=== PATIENT | male | born 1945 | race Caucasian/White ===

== ENCOUNTER → 2023-07-13 09:11 | Outpatient (CLI) | payer MEDICARE, BC, SELFPAY | PROVIDERS: PCP Family Medicine Sports Medicine; Referring Provider Specialist; Visit Provider Specialist | DX: N40.1 Benign prostatic hyperplasia with lower urinary tract symptoms (principal); N13.8 Other obstructive and reflux uropathy; R39.9 Unspecified symptoms and signs involving the genitourinary system | CPT/HCPCS: 36415; 51798; 81002; 84153; 99214 ==

== ENCOUNTER → 2024-06-05 09:14 | Outpatient (CLI) | payer MEDICARE, OTHER, SELFPAY | PROVIDERS: PCP Family Medicine Sports Medicine; Visit Provider Urology | DX: R39.9 Unspecified symptoms and signs involving the genitourinary system (principal) | CPT/HCPCS: 87086 ==

== ENCOUNTER → 2024-09-06 12:59 | Outpatient (CLI) | payer MEDICARE, OTHER, SELFPAY | PROVIDERS: PCP Family Medicine Sports Medicine; Visit Provider Urology | DX: R39.9 Unspecified symptoms and signs involving the genitourinary system (principal) | CPT/HCPCS: 87086 ==

== ENCOUNTER 2024-09-16 08:06 | Day surgery (SDC) | payer MEDICARE, OTHER, SELFPAY ==
[2024-09-09 13:14] VITALS: BMI 40.5
[2024-09-16] VITALS (10 sets, daily range): BP systolic 135–158; BP diastolic 67–82; PULSE 58–79; RESP 14–20; TEMP 36.2–37; O2SAT 94–99; BMI 40.6
--- NOTE | 2024-09-16 | PATH_ITS ---
[facility] Accession Number: [id number] No. of containers..01 Tissue . 01 Material submitted: . prostate - PROSTATE CHIPS . 01 Diagnosis: PROSTATE CHIPS, TRANSURETHRAL PROSTATIC TISSUE RESECTION: Invasive prostatic adenocarcinoma, conventional/acinar type, total Jasmin score 6 (primary pattern 3, secondary pattern 3), involving 3 out of 72 tissue fragments examined (approximately 5% extent of involvement). Negative for perineural invasion. Grade group: 1 (3+3). Please see microscopic description. Background nodular stromal and glandular hypertrophy. Benign urothelial mucosa also present. V 09/20/2024 1443 Local . 01 Comment: Results were called to ALICIA Al, on 09/20/2024, at 11:45 a.m. . 01 Electronically signed: . Alysa Russell MD, Pathologist NPI- [id number] . 01 Gross description: . Received in formalin with two patient identifiers and prostate chips, and consists of a 4.5 x 3.2 x 1.8 cm (9 gram) aggregate of staton-brown focally cauterized rubbery morcellated tissue admixed with clotted blood. The staton-brown tissue is entirely submitted in cassettes A1-A5. ([id number]) /V 09/18/2024 1441 Local . 01 Microscopic: . Microscopic examination of the entirely submitted prostatic tissue reveals rare foci of invasive, well-differentiated, prostatic adenocarcinoma, grade group 1, involving only 3 fragments out of 72 fragments, 5% of the tissue examined. . Immunostains are performed to support the morphologic impression of carcinoma (especially in areas where cautery artifact limits morphologic evaluation), with the following results: p63/high molecular weight cytokeratin confirms the absence of basal/myoepithelial cell layer on the invasive glands, and the immunostain AMACR appears overexpressed on the areas of interest. . These immunohistochemical results along with the morphology support the diagnosis. . Technical note: * This test was developed and the performance characteristics were validated by [employer]. It has not been cleared or approved by the [place]. Food and Drug Administration. . 01 Pathologist provided ICD-10: N40.1, C61 . 01 CPT . 254563, C69441, [id number] Performed at: [address] [address], [place], [place] [id number] MD Miguel Greenberg MD Phone: [phone]
[2024-09-16] MEDS: LACTATED RINGERS 1,000 ML 42 ML IV ×2 (09:45→13:18)
[2024-09-16] MEDS: ACETAMINOPHEN 325 MG TABLET 975 MG PO (09:47)
[2024-09-16 10:55] LABS: Hematocrit 40.5 % (41-53); Mean Corpuscular HGB Conc 34.4 % (30-36); Mean Corpuscular Hemoglobin 31.1 PG (26-34); Mean Corpuscular Volume 90.4 fL (80-100); Platelet Count 196 X10^3/uL (150-400); Red Blood Cell Count 4.49 X10^6/uL (4.5-5.9); Red Cell Distribution Width 14.5 % (11.6-14.8); White Blood Cell Count 7.2 X10^3/uL (4.5-11.0)
[2024-09-16 11:01] LABS: Alanine Aminotransferase 38 IU/L (<50); Albumin 4.2 g/dL (3.5-5.0); Albumin Globulin Ratio 1.4 (1.0-2.8); Alkaline Phosphatase 85 U/L (38-126); Aspartate Aminotransferase 44 IU/L (17-59); BUN Creatinine Ratio 27.9 (6-22); Bilirubin Total 1.2 mg/dL (0.2-1.3); Blood Urea Nitrogen 48 mg/dL (9-20); Calcium 8.3 mg/dL (8.4-10.2); Carbon Dioxide 26 mmol/L (22-32); Chloride 106 mmol/L (98-107); Estimated Glomerular Filt Rate 40 mL/min (>60); Globulin 3.1 g/dL (1.7-4.1); Glucose 100 mg/dL (80-110); HEMOLYSIS < 15 (0-50); Sodium 139 mmol/L (137-145); Total Protein 7.3 g/dL (6.3-8.2)
--- NOTE | 2024-09-16 11:39 | PM.PREOP ---
Pre-operative Note COVID-19 COVID-19 status: Not tested Interval Note History & Physical reviewed/Exam performed by Physician: Yes Changes to H&P: No
[2024-09-16] MEDS: CEFAZOLIN VIAL 3 GM in SODIUM CHLORIDE 0.9% 100 ML IV (12:29)
--- NOTE | 2024-09-16 12:42 | SUR.OPER ---
Lithotomy on padded OR bed, head on pillow, arms secured on padded arm boards at <90 degrees abduction. Legs secured in padded yellow fins stirrups.
[2024-09-16] MEDS: LIDOCAINE 2% (GLYDO) 6 ML GEL TOP (13:04)
--- NOTE | 2024-09-16 13:37 | P.OP_ITS ---
Procedure & Clinicians Procedure: Cystoscopy Aquablation Same procedure as scheduled: Yes Indications: 79 y/o M w/ BPH and bothersome LUTS who was unresponsive to medical therapy and strongly desires management via an Aquablation procedure. Surgeon: Bennie Thomson Anesthesia Type: General Operative Notes Findings: Coaptating lateral prostatic lobes, no intravesical median lobe, small prostate Closure Type: not applicable Specimen(s): other (prostate chips) Applied: catheter Estimated Blood Loss (mL): 20 Blood products transfused: none Procedure in detail: After informed consent was obtained, the patient was identified brought to the operating room where he was placed in his supine position on the table.? Once there anesthesia was induced and maintained.? Ensuring an adequate level of anesthesia the patient was transitioned to the lithotomy position where after time-out he was prepped.? After prepping, ensuring an adequate level of anesthesia, administration IV antibiotics and time-out 60 cc of ultrasound gel was instilled within the rectum and the ultrasound probe which had been attached to the TRUS stepper which was attached to the TRUS stepper articulating arm which was secured to the bed was advanced into the rectum under direct vision via the ultrasound.? The ultrasound probe was then aligned and confirmation made that the prostate was centered and aligned in both the sagittal and transverse views.? The bladder neck, verumontanum, central and transitional zones were identified.? With the ultrasound in place and adjusted the patient was then draped in a sterile fashion. With the patient draped the 24 Occitan aqua beam handpiece was then inserted through the urethra and advanced into the bladder.? Cystoscopy was then performed and no concerning bladder mass or lesions were noted.? Bilateral ureteral orifices were noted to be orthotopic in nature.? As the cystoscope was advanced the level of the sphincter, verumontanum, bladder neck were all identified via ultrasound and under direct vision.? The aqua beam hand place was then secured to the handpiece articulating arm which had been secured to the bed.? The Aquablation handpiece and TRUS probe were confirmed to be parallel and colinear.? Confirmation was then made that the aqua beam handpiece and nozzle was centered and anterior to the bladder neck.? The cystoscope was then retracted under direct vision in the sphincter and verumontanum were identified.? The tip of the cystoscope was then placed proximal to the external sphincter.? Compression was applied with the TRUS probe to the prostate.? The alignment of the TRUS probe and aqua beam handpiece was once again confirmed.? Horizontal alignment of the handpiece water jet was then performed.? With these adjustments made, the treatment zones were then planned using real-time ultrasound.? In the largest transverse view of the prostate the depth and radial angles were determined and set again in the transverse view of the prostate.? In the longitudinal and sagittal view the Aquablation nozzle was identified and its position registered with the software and robot.? The treatment contours were then determined and adjusted to reflect the intended margins of resection.? Following our plan confirmation, the Aquablation resection treatment was started.? A 2nd pass was then completed in similar fashion after the 1st pass had been completed.? At this point, the Aqua hand piece was removed from the urethra. The 26Fr resectoscope was then inserted into the urethra and cystoscopy was repeated.? The [employer] batch plant supervisor was utilized to evacuate the blood clots from the bladder.? The bladder neck was then resected using the bipolar Gyrus loop.? Bilateral ureteral orifices were again identified and noted to be intact at case end.? Hemostasis was obtained and noted to be excellent at case end.? The resectoscope was then removed and a 22Fr Bernardo 3-way hematuria catheter was inserted through the urethra and into the bladder.? 45cc of sterile water was utilized for balloon insufflation.? Efflux was noted to be clear at case end.? Anesthesia was reversed, he was extubated in the OR and transferred to the PACU in stable condition for recovery. Complications: none Post-operative Condition: stable Disposition: PACU Plan for aftercare: Will continue to run CBI for a few hours to evaluate the efflux from his catheter.? Should it remain relatively clear and with minimal blood clots, will discharge home with catheter in place and have him return to Urology clinic in 2 days for a voiding trial.? Should his efflux remain red or have significant clot burden, will admit overnight for observation and continued CBI.
[2024-09-16] MEDS: PHENAZOPYRIDINE 100 MG TABLET 200 MG PO (15:01)
--- NOTE | 2024-09-16 15:39 | SUR.PHASEII ---
CBI fluid stopped at [address] Thomson.
== END 2024-09-16 17:07 | disposition home or self-care (01) ==
LOC: OR 08:07 → AC 08:09
PROVIDERS: Nurse Anesthetist, Certified Registered; PCP Internal Medicine; Referring Provider Urology; Visit Provider Urology
PROC: 0VT08ZZ Resection of Prostate, Via Natural or Artificial Opening Endoscopic (ICD-10-PCS; CPT 0421T; principal; 2024-09-16 09:45)
DX: N40.1 Benign prostatic hyperplasia with lower urinary tract symptoms (principal); R33.9 Retention of urine, unspecified; R39.15 Urgency of urination; R39.12 Poor urinary stream; R35.0 Frequency of micturition; R35.1 Nocturia; N52.9 Male erectile dysfunction, unspecified; F17.210 Nicotine dependence, cigarettes, uncomplicated; Z79.01 Long term (current) use of anticoagulants
CPT/HCPCS: 0421T; 80053; 85027; C2596; J0690; J2704; J3010